=== PATIENT | female | born 1995 | race Caucasian/White ===

== ENCOUNTER 2017-09-19 14:31 | Emergency (ER) | payer OTHER ==
[~2017-09-19] VITALS: Ht 167.6 cm; Wt 58.7 kg
[2017-09-19 14:39] VITALS: Ht 167.6 cm; Wt 58.7 kg
[2017-09-19 17:01] VITALS: BP 125/77
== END 2017-09-19 17:01 | disposition home or self-care (01) ==
LOC: ED 14:31
DX: L98.9 Disorder of the skin and subcutaneous tissue, unspecified (principal)